=== PATIENT | male | born 1940 | race Caucasian/White ===

== ENCOUNTER 2016-08-27 06:42 | Emergency (ER) | payer OTHER ==
[2016-08-27 07:05] VITALS: TEMP 97.7; O2SAT 100
[2016-08-27] MEDS ORDERED: Sodium Chloride 0.9% 1,000 ML ONE (07:29)
[2016-08-27] MEDS ORDERED: Sodium Chloride 0.9% 1,000 ML IV SCH (07:30)
[2016-08-27 07:47] LABS: BASO # 0.1 K/uL (0.0-0.2); BASO % 0.7 % (0.0-2.0); EOS # 1.8 K/uL (0.0-0.7); EOS % 18.6 % (0.0-4.0); HEMATOCRIT 41.8 % (35.0-51.0); LYMPH # 2.3 K/uL (1.0-4.3); LYMPH % 23.6 % (20.0-40.0); MEAN CELL VOLUME 93.8 fL (80.0-94.0); MEAN CORPUSCULAR HEMOGLOBIN 31.2 pg (27.0-31.0); MEAN CORPUSCULAR HGB CONC 33.3 g/dL (33.0-37.0); MEAN PLATELET VOLUME 7.7 fL (7.2-11.7); MONO # 0.9 K/uL (0.0-0.8); MONO % 9.5 % (0.0-10.0); RED CELL DISTRIBUTION WIDTH 14.1 % (11.5-14.5); WHITE BLOOD COUNT 9.7 K/uL (4.8-10.8)
--- NOTE | 2016-08-27 07:51 | C.PDOC ---
History Of Present Illness 75 yr old male brought in via BLS, presents to the ER with complaints of dizziness upon waking up today. Patient has been to the ER previously for a TIA. Patient denies fever, vision changes, chest pain, SOB, nausea, vomiting, weakness or numbness. Time Seen by Provider: 08/27/16 07:19 Chief Complaint (Nursing): Dizziness/Lightheaded History Per: Patient History/Exam Limitations: no limitations Onset/Duration Of Symptoms: Sudden Onset (Upon waking up ) Current Symptoms Are (Timing): Still Present Activity At Onset Of Symptoms: Change In Head Position Associated Symptoms Preceding Syncopal Episode: Lightheadedness, Vertigo, Vertigo Worse With Change In Head Position Seizure Or Post-ictal Symptoms: None Fall Associated With With Symptoms: No Severity: Mild Past Medical History Reviewed: Historical Data, Nursing Documentation, Vital Signs Vital Signs: Last Vital Signs Temp 97.7 F 08/27/16 06:58 Pulse 75 08/27/16 10:35 Resp 14 08/27/16 10:35 BP 132/67 08/27/16 10:35 Pulse Ox 100 08/27/16 10:35 - Medical History PMH: Asthma, Emphysema Surgical History: No Surg Hx - [facility] Procedures RELEASE PERITONEUM, PERCUTANEOUS ENDOSCOPIC APPROACH (04/09/16) Family History: States: No Known Family Hx - Social History Hx Alcohol Use: No Hx Substance Use: No - Immunization History Hx Tetanus Toxoid Vaccination: Yes Hx Influenza Vaccination: Yes Hx Pneumococcal Vaccination: Yes Review Of Systems Except As Marked, All Systems Reviewed And Found Negative. Constitutional: Negative for: Fever Eyes: Negative for: Vision Change Cardiovascular: Negative for: Chest Pain Respiratory: Negative for: Shortness of Breath Gastrointestinal: Negative for: Nausea, Vomiting Neurological: Positive for: Dizziness. Negative for: Weakness, Numbness Physical Exam - Physical Exam Appears: Well, Non-toxic, No Acute Distress Skin: Warm, Dry, No Rash Head: Atraumatic, Normacephalic Eye(s): bilateral: Normal Inspection, PERRL, EOMI Oral Mucosa: Moist Tongue: Normal Appearing Lips: Normal Appearing Neck: Normal, Normal ROM, Supple Chest: Symmetrical, No Tenderness Cardiovascular: Rhythm Regular, No Murmur Respiratory: Normal Breath Sounds, No Rales, No Rhonchi, No Wheezing Gastrointestinal/Abdominal: Normal Exam, Soft, No Tenderness, No Guarding, No Rebound Extremity: Normal ROM, No Swelling Neurological/Psych: Oriented x3, Normal Speech, Normal Motor Gait: Steady ED Course And Treatment - Laboratory Results Result Diagrams: 08/27/16 07:43 08/27/16 07:43 Lab Interpretation: Normal ECG: Interpreted By Me ECG Rhythm: Sinus Rhythm, Nonspecific Changes ECG Interpretation: No Acute Changes, No Changes From Prior Rate From EC (BPM) O2 Sat by Pulse Oximetry: 100 (RA ) Pulse Ox Interpretation: Normal - CT Scan/US CT - Head Other Rad Studies (CT/US): Read By Radiologist, Radiology Report Reviewed CT/US Interpretation: FINDINGS: HEMORRHAGE: No intracranial hemorrhage. BRAIN : No mass effect or edema. Mild age related cerebral atrophy is once again noted. Mild small vessel changes are noted in the white matter tracts. No cortical effacement is seen. Subdural windows fail to show evidence of extra- axial fluid collection. VENTRICLES: Unremarkable. No hydrocephalus. CALVARIUM : Unremarkable. PARANASAL SINUSES: Mild mucosal changes are seen. MASTOID AIR CELLS: Unremarkable as visualized. No inflammatory changes. OTHER FINDINGS : None. IMPRESSION: No evidence of intracranial hemorrhage or recent infarct. Stable mild age related changes. Progress Note: Treated with IVF NSS and meclizine. On re-evaluation feeling better, ambulating with steady gait Reassessment Condition: Improved Medical Decision Making Medical Decision Making: PLAN: * CT - Head * EKG * Troponin * CBC * CMP * Urinlaysis * Meclizine PO * Sodium Chloride IV Disposition Counseled Patient/Family Regarding: Studies Performed, Diagnosis, Need For Followup, Rx Given - Disposition Referrals: [facility] [Outside] [facility] [Outside] Disposition: HOME/ ROUTINE Disposition Time: 10:30 Condition: IMPROVED Prescriptions: Meclizine [Meclizine*] 25 mg PO Q12 PRN #10 tab PRN Reason: Dizziness Instructions: Lightheadedness (ED), Dizziness (ED) Print Language: JAPANESE - POA Present On Arrival: None - Clinical Impression Clinical Impression: Vertigo, Dizziness - PA / EDUCATION FINANCE PROCESSOR / Resident Statement MD/DO has reviewed & agrees with the documentation as recorded. - Scribe Statement The provider has reviewed the documentation as recorded by the Scribe Mary Lou Blake All medical record entries made by the Scribe were at my direction and personally dictated by me. I have reviewed the chart and agree that the record accurately reflects my personal performance of the history, physical exam, medical decision making, and the department course for this patient. I have also personally directed, reviewed, and agree with the discharge instructions and disposition.
[2016-08-27 08:04] LABS: CHLORIDE 106 mmol/L (98-107); POTASSIUM 3.7 mmol/L (3.6-5.2); SODIUM 142 mmol/L (132-148)
[2016-08-27 08:06] LABS: ALB/GLOB RATIO 1.1 (1.0-2.1); AST/SGOT 22 U/L (17-59); BILIRUBIN,TOTAL 0.7 mg/dL (0.2-1.3); BLOOD UREA NITROGEN 12 mg/dL (9-20); CARBON DIOXIDE 26 mmol/L (22-30); GFR AFRICAN-AMERICAN > 60; TOTAL PROTEIN 6.9 g/dL (6.3-8.3)
[2016-08-27 08:07] LABS: ALKALINE PHOSPHATASE 70 U/L (38-126); ALT/SGPT 14 U/L (21-72); CALCIUM 8.6 mg/dl (8.6-10.4); GLUCOSE,RANDOM 94 mg/dL (75-110)
--- NOTE | 2016-08-27 09:10 | CT ---
PROCEDURE: CT HEAD WITHOUT CONTRAST. HISTORY: R/O Bleed COMPARISON: 04/20/2016 TECHNIQUE: Axial computed tomography images were obtained through the head/brain without intravenous contrast. Radiation dose: Total exam DLP = 834 mGy-cm. This CT exam was performed using one or more of the following dose reduction techniques: Automated exposure control, adjustment of the mA and/or kV according to patient size, and/or use of iterative reconstruction technique. FINDINGS: HEMORRHAGE: No intracranial hemorrhage. BRAIN: No mass effect or edema. Mild age related cerebral atrophy is once again noted. Mild small vessel changes are noted in the white matter tracts. No cortical effacement is seen. Subdural windows fail to show evidence of extra-axial fluid collection. VENTRICLES: Unremarkable. No hydrocephalus. CALVARIUM: Unremarkable. PARANASAL SINUSES: Mild mucosal changes are seen. MASTOID AIR CELLS: Unremarkable as visualized. No inflammatory changes. OTHER FINDINGS: None. IMPRESSION: No evidence of intracranial hemorrhage or recent infarct. Stable mild age related changes.
[2016-08-27 09:59] LABS: URINE BILIRUBIN NEGATIVE (NEGATIVE); URINE BLOOD NEGATIVE (NEGATIVE); URINE COLOR Straw (YELLOW); URINE GLUCOSE (UA) NORMAL (Normal); URINE KETONE NEGATIVE (NEGATIVE); URINE LEUKOCYTE ESTERASE NEG Leu/uL (Negative); URINE PROTEIN NEGATIVE (NEGATIVE); URINE UROBILINOGEN NORMAL mg/dL (0.2-1.0); WBC URINE 1 /hpf (0-5)
[2016-08-27 10:36] VITALS: BP 132/67; PULSE 75; RESP 14
--- NOTE | 2016-08-28 19:35 | CARD ---
APPROVED REPORT EKG Measurement Heart [id number] <Conclusion> Normal sinus rhythm Normal ECG
== END 2016-08-27 10:36 | disposition home or self-care (01) ==
LOC: C.ER 06:42
DX: R42 Dizziness and giddiness (principal)
CPT/HCPCS: 70450; 80053; 81001; 82948; 84484; 85025; 93005; 96360; 96361; 99285; J7040

== ENCOUNTER 2016-11-20 10:44 | Emergency (ER) | payer OTHER ==
[2016-11-20 12:51] LABS: BASO # 0.1 K/uL (0.0-0.2); BASO % 1.3 % (0.0-2.0); EOS # 1.8 K/uL (0.0-0.7); EOS % 15.8 % (0.0-4.0); HEMATOCRIT 43.1 % (35.0-51.0); LYMPH # 2.2 K/uL (1.0-4.3); LYMPH % 18.9 % (20.0-40.0); MEAN CELL VOLUME 94.8 fL (80.0-94.0); MEAN CORPUSCULAR HEMOGLOBIN 31.7 pg (27.0-31.0); MEAN CORPUSCULAR HGB CONC 33.5 g/dL (33.0-37.0); MEAN PLATELET VOLUME 7.8 fL (7.2-11.7); MONO % 9.1 % (0.0-10.0); RED CELL DISTRIBUTION WIDTH 14.4 % (11.5-14.5); WHITE BLOOD COUNT 11.4 K/uL (4.8-10.8)
[2016-11-20 13:03] LABS: ALB/GLOB RATIO 1.3 (1.0-2.1); ALKALINE PHOSPHATASE 68 U/L (38-126); ALT/SGPT 25 U/L (21-72); AST/SGOT 21 U/L (17-59); BILIRUBIN,TOTAL 0.5 mg/dL (0.2-1.3); BLOOD UREA NITROGEN 11 mg/dL (9-20); CARBON DIOXIDE 29 mmol/L (22-30); CHLORIDE 103 mmol/L (98-107); GFR AFRICAN-AMERICAN > 60; GLUCOSE,RANDOM 78 mg/dL (75-110); POTASSIUM 4.8 mmol/L (3.6-5.2); SODIUM 144 mmol/L (132-148); TOTAL PROTEIN 7.2 g/dL (6.3-8.3)
--- NOTE | 2016-11-20 13:03 | RAD ---
HISTORY: chest pain COMPARISON: Comparison chest 04/20/2016. TECHNIQUE: Chest PA and lateral FINDINGS: LUNGS: No active pulmonary disease. PLEURA: Biapical pleural thickening possibly associate with pleural calcification; rule out prior exposure to a granulomatous disease process. No pneumothorax apparent. . CARDIOVASCULAR: Normal. OSSEOUS STRUCTURES: Mild multilevel degenerative spondylosis of the thoracic spine VISUALIZED UPPER ABDOMEN: Normal. OTHER FINDINGS: None. IMPRESSION: No acute consolidation. Biapical pleural thickening possibly associate with pleural calcification ; rule out prior exposure to a granulomatous disease process
--- NOTE | 2016-11-20 13:04 | C.PDOC ---
History Of Present Illness 76 y/o male, with PMHx of asthma, presents to ED for evaluation of shortness of breath, and transient non-specific chest pain after seeing his being prepped for a procedure in the hospital today. Pt states that the symptoms have now resolved. Otherwise, denies any active physical complaints at this time. Time Seen by Provider: 11/20/16 12:10 Chief Complaint (Nursing): Shortness Of Breath History Per: Patient History/Exam Limitations: no limitations Onset/Duration Of Symptoms: Hrs Current Symptoms Are (Timing): Gone Quality: "Pain" Associated Symptoms: denies: Fever, Chills, Sweating, Chest Pain, Productive Cough, Heart Racing, Leg/Calf Pain, Ankle/Leg Swelling, Dizziness, Light- headedness, Anxiety, Tingling In Hands Or Face, Musle Spasms In Hands Or Feet Recent travel outside of the [place]: No Additional History Per: Patient Past Medical History Reviewed: Historical Data, Nursing Documentation, Vital Signs Vital Signs: Last Vital Signs Temp 98 F 11/20/16 13:43 Pulse 74 11/20/16 13:43 Resp 16 11/20/16 13:43 BP 158/84 H 11/20/16 13:43 Pulse Ox 99 11/20/16 14:29 - Medical History PMH: Asthma, Emphysema - [facility] Procedures RELEASE PERITONEUM, PERCUTANEOUS ENDOSCOPIC APPROACH (04/09/16) Family History: States: Unknown Family Hx - Social History Hx Alcohol Use: No Hx Substance Use: No - Immunization History Hx Tetanus Toxoid Vaccination: Yes Hx Influenza Vaccination: Yes Hx Pneumococcal Vaccination: Yes Review Of Systems Constitutional: Negative for: Fever, Chills Cardiovascular: Negative for: Chest Pain, Palpitations, Edema, Light Headedness Respiratory: Negative for: Cough, Shortness of Breath, Hemoptysis, Sputum Gastrointestinal: Negative for: Nausea, Vomiting, Abdominal Pain Neurological: Negative for: Headache, Dizziness Physical Exam - Physical Exam Additional Physical Exam Comments: Constitutional: No acute distress. Head: Normocephalic. Atraumatic. Eyes: PERRL. EOMI ENT: Moist mucous membranes. Neck: Supple. Cardiovascular: Regular rate and rhythm. No murmur. Chest: No tenderness. Respiratory: Clear to auscultation bilaterally. No wheezing, rhonchi, or rales. GI: Soft. Nontender. Nondistended. Normoactive bowel sounds. Back: No CVA tenderness. Musculoskeletal: No swelling of extremities. No calf tenderness. Skin: No rash. Neurologic: Alert, no gross focal deficit. ED Course And Treatment - Laboratory Results Result Diagrams: 11/20/16 12:47 11/20/16 12:47 ECG: Interpreted By Me, Viewed By Me ECG Rhythm: Sinus Rhythm ECG Interpretation: Normal Rate From EC (bpm) O2 Sat by Pulse Oximetry: 99 (on RA) Pulse Ox Interpretation: Normal Medical Decision Making Medical Decision Making: EKG, CXR, blood work ordered and reviewed. 240pm pt with brief sob/cp while prepared for procedure which lasted very briefly and resolved. pt with no cp, normal ekg, no sob, no acute findings on cxr normal labs, will d/c home with pmd f/u Disposition Counseled Patient/Family Regarding: Studies Performed, Diagnosis, Need For Followup, Rx Given - Disposition Referrals: Cassius Nicolas MD [Staff Provider] - Disposition: HOME/ ROUTINE Disposition Time: 15:04 Condition: STABLE Additional Instructions: Seguimiento con saul pmd maana. Vuelva al ER para cualquier sntoma que empeora. Instructions: Dyspnea (ED) Forms: Gen Discharge Inst Angolan, [facility] (Angolan) - Clinical Impression Clinical Impression: Dyspnea - PA / SURVEILLANCE CAMERA TECHNICIAN / Resident Statement MD/DO has reviewed & agrees with the documentation as recorded. - Scribe Statement The provider has reviewed the documentation as recorded by the Scribe Abigail Beltrán All medical record entries made by the Scribe were at my direction and personally dictated by me. I have reviewed the chart and agree that the record accurately reflects my personal performance of the history, physical exam, medical decision making, and the department course for this patient. I have also personally directed, reviewed, and agree with the discharge instructions and disposition.
[2016-11-20 13:44] VITALS: TEMP 98; O2SAT 99
[2016-11-20 15:16] VITALS: BP 148/87; PULSE 79; RESP 18
--- NOTE | 2016-11-23 10:25 | CARD ---
APPROVED REPORT EKG Measurement Heart [id number] <Conclusion> Normal sinus rhythm Normal ECG
== END 2016-11-20 15:20 | disposition home or self-care (01) ==
LOC: C.ER 10:44
DX: R06.00 Dyspnea, unspecified (principal)